=== PATIENT | female | born 1990 | race Caucasian/White ===

== ENCOUNTER 2021-10-09 21:10 | Emergency (ER) | payer SELFPAY ==
[~2021-10-09] VITALS: Ht 162.6 cm; Wt 68.2 kg
[2021-10-09 21:34] VITALS: BP 109/74
--- NOTE | 2021-10-09 22:17 | NUR ---
NOT IN LOBBY
== END 2021-10-09 22:46 | disposition left against medical advice (07) ==
LOC: ER 21:11
DX: Z53.21 Procedure and treatment not carried out due to patient leaving prior to being seen by health care provider (principal)

== ENCOUNTER 2025-07-13 20:47 | Emergency (ER) | payer MEDICAID ==
[~2025-07-13] VITALS: Ht 162.6 cm; Wt 70.0 kg
[2025-07-13 21:00] VITALS: BP 123/81; PULSE 99; RESP 18; TEMP 98; O2SAT 99
--- NOTE | 2025-07-14 12:50 | Physician Documentation ---
History of Present Illness ~ Chief Complaint: Foot pain Stated Complaint: FOOT/TOE PAIN Time Seen by MD: 21:24 HPI Reported bilateral feet infection. Patient has left prior to being seen. No patient contact. Medication Reconciliation Allergies: Coded Allergies: No Known Allergies (Unverified , 10/09/21) Past Medical History Smoking Status: Never smoker Physical Exam Vital Signs: Temperature: 98.0, Source: Temporal, Heart Rate: 99, Respiratory Rate: 18, BP: 123/81, Pulse Oximetry: 99, Weight: 70.000 Oxygen Flow Rate: 0 Progress Results/Orders Results/Orders Vital Signs 07/13/25 21:00 Temp 98.0 Pulse 99 Resp 18 B/P (MAP) 123/81 Pulse Ox 99 O2 Flow Rate 0 Departure Disposition: 07 LEFT WITHOUT BEING SEEN Impression: Primary Impression: Bilateral foot pain Referrals: NO PRIMARY CARE PROVIDER (PCP) Signature Scribe Signature: . Attestation: . CHAZ NIEVES PAC Jul 14, 2025 12:50
== END 2025-07-13 21:58 | disposition left against medical advice (07) ==
LOC: ER 20:48
DX: L08.9 Local infection of the skin and subcutaneous tissue, unspecified (principal)

== ENCOUNTER 2025-07-17 19:45 | Emergency (ER) | payer MEDICAID ==
[~2025-07-17] VITALS: Ht 172.7 cm; Wt 80.3 kg
[2025-07-17 20:12] VITALS: BP 124/75; PULSE 96; RESP 15; TEMP 96.3; O2SAT 95
[2025-07-17 22:04] LABS: STREP A SCREEN NEGATIVE (Neg)
--- NOTE | 2025-07-17 22:45 | Physician Documentation ---
History of Present Illness ~ Chief Complaint: Sore Throat Stated Complaint: COLD SYMPTOMS Time Seen by MD: 22:36 Primary Medical Doctor: [facility] 35-year-old female that presents to the emergency department for complaints of sore throat sores or spots to the mouth and feet. Currently sparing the hands. Patient reports that she has felt mildly feverish periodically over the last couple of days. Denies nausea vomiting diarrhea at this time. Other symptoms reported at this time. Patient is a accompanied by her 1-year-old child who has similar symptoms. Medication Reconciliation Allergies: Coded Allergies: No Known Allergies (Unverified , 10/09/21) Past Medical History Last Menstrual Period: Jul 15, 2025 Review of Systems ROS As stated above in the HPI, otherwise all systems are reviewed and negative. Physical Exam Vital Signs: Temperature: 96.3, Heart Rate: 96, Respiratory Rate: 15, BP: 124/75, Pulse Oximetry: 95, Weight: 80.300 Physical Exam VITALS: Reviewed and as above. GENERAL: Alert, no apparent distress. HEENT: Normocephalic, atraumatic, PERRL, EOMI, dry mucosa, no erythema RESPIRATORY: Lungs clear, normal breath sounds, no respiratory distress. CHEST: No accessory muscle use, no retractions CV: Regular rate, rhythm, no edema, no murmur, No: JVD GI: Soft, non-tender, bowels sounds present, no rebound, guarding, or rigidity BACK: No CVA tenderness, or swelling MUSCULOSKELETAL No deformities, no edema SKIN: Warm and dry, small spots to the palmar aspect of bilateral feet with erythema, small spots to the oral cavity and around the mouth. NEURO: Oriented x4, No motor or sensory deficit PSYCH: Normal mood and affect, no agitation Progress Results/Orders Results/Orders Orders - IZABEL KAY Cult Throat + R/O Beta Strep (07/17/25 22:04) Completed Orders - IZABEL KAY Strep A Rapid (07/17/25 21:44) Vital Signs 07/17/25 20:12 Temp 96.3 Pulse 96 Resp 15 B/P (MAP) 124/75 Pulse Ox 95 Laboratory Tests Test 07/17/25 21:45 Group A Streptococcus Rapid Negative Medical Decision Making Findings This patient who presents with rash to the soles of the feet oral cavity and hands, sore throat and lethargy for 2-3 days, consistent with [id number]. History and exam findings not consistent with dangerous etiologies of rash such as SJS/TEN, or secondary dangerous causes such as petechial rashes from thrombocytopenia or rickettsial infections. Rash does not appear urticarial with no signs of anaphylaxis either. Plan at this time is to treat symptomatically, instruct to follow up with PCP or derm PRN. Patient was educated on [id number] being a viral illness that we manage the symptoms for an it is not treated with antibiotics. Instructed to take Tylenol ibuprofen as needed for discomfort follow up with her primary care provider. Patient will return to the emergency department with any worsening or recurrent symptoms or any additional concerning symptoms that we discussed here today i.e. fever chills increased lethargy inability to eat or keep liquids down or any other concerning symptoms. Ear Diff. Dx: Considerations: Include: Abrasion, Cerumen impaction, Foreign body, Otitis externa, Barotrauma, Otitis media, Perforation, Referred pain- dental, Referred pain-pharyngitis, Referred pain-sinusitis, Referred pain-TMJ syn., Tympanic Membrane Injury, Other Throat Diff Dx: Considerations: Include: AIDS, Epiglottitis, Esophageal candidiasis, Hand foot mouth disease, Herpangina, Herpetic stomatitis, Herpes simplex, Infection mononucleosis, Immunodeficiency, Juan's angina, Peritonsillar abscess, Peritonsillar cellulitis, Pharyngitis-diphtheria, Pharyngitis-strepococcal, Pharyngitis-viral, Thrush, URI, Other Departure Disposition: 01 HOME / SELF CARE / HOMELESS Impression: Primary Impression: Sore throat Additional Impressions: Rash Hand, foot and mouth disease Discharge Instructions: Hand, Foot, and Mouth Disease, Adult, Sore Throat Referrals: NO PRIMARY CARE PROVIDER (PCP) Education Educated: Patient Educated regarding: diagnosis, treatment, need for follow up Signature Scribe Signature: A Attestation: Scribed for Izabel Kay by ROBE Thompson . 07/17/25 22:47 IZABEL KAY Jul 17, 2025 22:45
== END 2025-07-17 23:00 | disposition home or self-care (01) ==
LOC: ER 19:46
DX: J02.9 Acute pharyngitis, unspecified (principal); R21 Rash and other nonspecific skin eruption; B08.4 Enteroviral vesicular stomatitis with exanthem
CPT/HCPCS: 87081; 87880; 99283